=== PATIENT | male | born 1950 | race Caucasian/White ===

== ENCOUNTER 2017-07-25 07:48 | Emergency (ER) | payer MEDICARE, BC ==
[2017-07-25] MEDS ORDERED: Sodium Chloride 0.9% 10 ML Syringe FLUSH PRN (09:11)
[2017-07-25] MEDS ORDERED: Sodium Chloride 0.9% 1,000 ML IV ONE (09:16)
--- NOTE | 2017-07-25 10:52 | EDM.PDOC ---
ED HPI GENERAL MEDICAL PROBLEM - General Chief Complaint: Respiratory Problem Stated Complaint: SOB, DEHYDRATION Time Seen by Provider: 07/25/17 07:48 Source of Information: Reports: Patient History Limitations: Reports: No Limitations - History of Present Illness INITIAL COMMENTS - FREE TEXT/NARRATIVE: 67 y.o.w.m came to the ed because he could not pass stool for about 1 week. His last stool was soft, but had blood on top of it. Pt has a h/o hemorrhoids. No N /V, no trauma. Pt says he feels occ dizzy, had poor water intake in the past 1- 2 week. Pt denied other acute medical issues. BP 130/71 pulse 94 Temp 36.6 Pulse ox 100% Onset Date: 07/21/17 Onset Time: 07:00 Duration: Week(s):, Getting Worse Location: Reports: Abdomen Quality: Reports: Dull, Same as Previous Episode Severity: Mild Improves with: Reports: None Worsens with: Reports: None Context: Reports: Other (unable to pass stool for 1 week) Associated Symptoms: Reports: No Other Symptoms (abd. discomfort, minor) Rectal Pain Score (Numeric/FACES): 3 - Related Data Allergies Allergy/AdvReac Type Severity Reaction Status Date / Time No Known Allergies Allergy Verified 07/25/17 08:08 Home Meds: Home Meds Aspirin 325 mg PO DAILY 07/25/17 [History] Venlafaxine HCl [Venlafaxine HCl ER] 75 mg PO DAILY 07/25/17 [History] Past Medical History Cardiovascular History: Reports: Afib Gastrointestinal History: Reports: Diverticulosis Psychiatric History: Reports: Depression - Past Surgical History Cardiovascular Surgical History: Reports: Coronary Artery Bypass GI Surgical History: Reports: Other (See Below) Other GI Surgeries/Procedures: colon resection removing 19" Social & Family History - Family History Family Medical History: Noncontributory - Tobacco Use Smoking Status *Q: Never Smoker - Caffeine Use Caffeine Use: Reports: Coffee - Recreational Drug Use Recreational Drug Use: No ED ROS GENERAL - Review of Systems Review Of Systems: See Below Constitutional: Reports: No Symptoms HEENT: Reports: No Symptoms Respiratory: Reports: No Symptoms Cardiovascular: Reports: No Symptoms Endocrine: Reports: No Symptoms GI/Abdominal: Reports: Bloody Stool : Reports: No Symptoms Musculoskeletal: Reports: No Symptoms Skin: Reports: No Symptoms Neurological: Reports: No Symptoms Psychiatric: Reports: No Symptoms Hematologic/Lymphatic: Reports: No Symptoms Immunologic: Reports: No Symptoms ED EXAM, GENERAL - Physical Exam Exam: See Below Exam Limited By: No Limitations General Appearance: Alert, WD/WN, Mild Distress, Obese Eye Exam: Bilateral Eye: Normal Inspection Ears: Normal External Exam Ear Exam: Bilateral Ear: Auricle Normal Nose: Normal Inspection, Normal Mucosa Throat/Mouth: Normal Inspection, Normal Lips Head: Atraumatic, Normocephalic Neck: Normal Inspection, Supple, Non-Tender, Full Range of Motion Respiratory/Chest: No Respiratory Distress, Lungs Clear, Normal Breath Sounds Cardiovascular: Normal Peripheral Pulses, Regular Rate, Rhythm Peripheral Pulses: 2+: Brachial (L) GI/Abdominal: Normal Bowel Sounds, Soft, Tender (generalized) (Male) Exam: Deferred Rectal (Males) Exam: Deferred Back Exam: Normal Inspection, Full Range of Motion Extremities: Normal Inspection, Normal Range of Motion, Non-Tender, No Pedal Edema, Normal Capillary Refill Neurological: Alert, Oriented, CN II-XII Intact, Normal Cognition, Normal Gait, No Motor/Sensory Deficits Psychiatric: Normal Affect, Normal Mood Skin Exam: Warm, Dry, Intact, Normal Color, No Rash Lymphatic: No Adenopathy EKG INTERPRETATION EKG Date: 07/25/17 Time: 08:10 Rhythm: NSR Rate (Beats/Min): 82 [place]: Normal P-Wave: Present QRS: Normal ST-T: Normal QT: Normal Comparison: NA - No Prior EKG Course - Vital Signs Text/Narrative:: 67 y.o.w.m came to the ed because he could not pass stool for about 1 week. His last stool was soft, but had blood on top of it. Pt has a h/o hemorrhoids. No N /V, no trauma. Pt says he feels occ dizzy, had poor water intake in the past 1- 2 week. Pt denied other acute medical issues. BP 130/71 pulse 94 Temp 36.6 Pulse ox 100% PE: WNWD WN WM C/O abd. discomfort Labs: WBC NL BUN 25 Cr 1.3 GFR 55 UA nl Imaging: NSBGP, no obstruction NAY: NSR Impression: Dehydration Tx: NS Reexam: Improved, pt passed brown stool, soft, with minimal blood on top of it Plan: D/C with instructions Last Recorded V/S: Last Vital Signs Temp 36.3 C 07/25/17 11:15 Pulse 82 07/25/17 11:15 Resp 18 07/25/17 11:15 BP 125/72 07/25/17 11:15 Pulse Ox 96 07/25/17 11:15 - Orders/Labs/Meds Orders: Active Orders 24 hr Category Date Time Status Abdomen 2V AP Flat Upright [CR] Stat Exams 07/25/17 08:11 Taken Saline Lock Insert [OM.PC] Routine Oth 07/25/17 09:11 Ordered EKG 12 Lead [EK] Routine Ther 07/25/17 08:11 Ordered Labs: Laboratory Tests 07/25/17 07/25/17 07/25/17 Range/Units 08:18 08:18 08:34 WBC 8.2 (4.5-12.0) X10-3/uL RBC 4.89 (4.30-5.75) x10(6)uL Hgb 16.1 H (11.5-15.5) g/dL Hct 49.1 (30.0-51.3) % MCV 100.3 H (80-96) fL MCH 33.0 (27.7-33.6) pg MCHC 32.9 (32.2-35.4) g/dL RDW 12.0 (11.5-15.5) % Plt Count 167 (125-369) X10(3)uL Sodium 141 (135-145) mmol/L Potassium 4.7 (3.5-5.3) mmol/L Chloride 104 (100-110) mmol/L Carbon Dioxide 29 (21-32) mmol/L BUN 28 H (7-18) mg/dL Creatinine 1.3 (0.70-1.30) mg/dL Est Cr Clr Drug Dosing TNP Estimated GFR (MDRD) 55 L (>60) BUN/Creatinine Ratio 21.5 H (9-20) Glucose 112 (80-116) mg/dL Calcium 9.5 (8.6-10.2) mg/dL NT-Pro-B Natriuret Pep 198 H (<=125) pg/mL Urine Color (YELLOW) Urine Appearance (CLEAR) Urine pH (5.0-6.5) Ur Specific [place] (1.010-1.025) Urine Protein (NEGATIVE) mg/dL Urine Glucose (UA) (NEGATIVE) mg/dL Urine Ketones (NEGATIVE) mg/dL Urine Occult Blood (NEGATIVE) Urine Nitrite (NEGATIVE) Urine Bilirubin (NEGATIVE) Urine Urobilinogen (NEGATIVE) mg/dL Ur Leukocyte Esterase (NEGATIVE) Urine RBC (0) Urine WBC (0) Ur Squamous Epith Cells (NS,R,O) Urine Bacteria (NS) 07/25/17 Range/Units 09:18 WBC (4.5-12.0) X10-3/uL RBC (4.30-5.75) x10(6)uL Hgb (11.5-15.5) g/dL Hct (30.0-51.3) % MCV (80-96) fL MCH (27.7-33.6) pg MCHC (32.2-35.4) g/dL RDW (11.5-15.5) % Plt Count (125-369) X10(3)uL Sodium (135-145) mmol/L Potassium (3.5-5.3) mmol/L Chloride (100-110) mmol/L Carbon Dioxide (21-32) mmol/L BUN (7-18) mg/dL Creatinine (0.70-1.30) mg/dL Est Cr Clr Drug Dosing Estimated GFR (MDRD) (>60) BUN/Creatinine Ratio (9-20) Glucose (80-116) mg/dL Calcium (8.6-10.2) mg/dL NT-Pro-B Natriuret Pep (<=125) pg/mL Urine Color Yellow (YELLOW) Urine Appearance Clear (CLEAR) Urine pH 5.0 (5.0-6.5) Ur Specific [place] 1.020 (1.010-1.025) Urine Protein Negative (NEGATIVE) mg/dL Urine Glucose (UA) Normal (NEGATIVE) mg/dL Urine Ketones Negative (NEGATIVE) mg/dL Urine Occult Blood Negative (NEGATIVE) Urine Nitrite Negative (NEGATIVE) Urine Bilirubin Negative (NEGATIVE) Urine Urobilinogen Normal (NEGATIVE) mg/dL Ur Leukocyte Esterase Negative (NEGATIVE) Urine RBC 0-5 (0) Urine WBC Not seen (0) Ur Squamous Epith Cells Rare (NS,R,O) Urine Bacteria Few H (NS) Meds: Medications Discontinued Medications Generic Name Dose Route Start Last Admin Trade Name Freq PRN Reason Stop Dose Admin Sodium Chloride 1,000 mls @ 999 mls/hr 07/25/17 09:16 07/25/17 09:18 Normal Saline IV 07/25/17 10:16 999 mls/hr .BOLUS ONE Administration Sodium Chloride 10 ml 07/25/17 09:11 07/25/17 09:14 Saline Flush FLUSH 10 ml ASDIRECTED PRN Administration Keep Vein Open Departure - Departure Time of Disposition: 10:51 Disposition: Home, Self-Care 01 Condition: Good Clinical Impression: Dehydration - Discharge Information Instructions: Dehydration, Adult, [id number], Constipation, Adult Referrals: Farooq Clark MD [Primary Care Provider] - Forms: ED Department Discharge Additional Instructions: Please increae water intake, please f/u, come back to the ed if your symptoms get worse acutely - My Orders Last 24 Hours: My Active Orders 07/25/17 08:11 Abdomen 2V AP Flat Upright [CR] Stat EKG 12 Lead [EK] Routine 07/25/17 09:11 Saline Lock Insert [OM.PC] Routine - Assessment/Plan Last 24 Hours: My Active Orders 07/25/17 08:11 Abdomen 2V AP Flat Upright [CR] Stat EKG 12 Lead [EK] Routine 07/25/17 09:11 Saline Lock Insert [OM.PC] Routine
== END 2017-07-25 11:17 | disposition home or self-care (01) ==
LOC: FB.ED 07:48
DX: E86.0 Dehydration (principal); F32.9 Major depressive disorder, single episode, unspecified; Z79.82 Long term (current) use of aspirin; Z79.899 Other long term (current) drug therapy
CPT/HCPCS: 36415; 74019; 80048; 81001; 83880; 85027; 93005; 96360; 99283; 99284; J7040; J7050

== ENCOUNTER 2019-03-04 20:14 | Emergency (ER) | payer MEDICARE, BC ==
[2019-03-04] MEDS ORDERED: Acetaminophen 325 MG Tab PO ONE (22:54)
[2019-03-04] MEDS ORDERED: Acetaminophen 500 MG Tab ONE (23:00)
[2019-03-04] MEDS ORDERED: Acetaminophen 500 MG Tab PO ONE (23:00)
[2019-03-04] MEDS ORDERED: Sodium Phosphate,Monobasic/Sodium Phosphate,Dibasic Enema 133 ML Bottle RECTAL ONE (23:21)
--- NOTE | 2019-03-04 23:49 | EDM.PDOC ---
ED HPI GENERAL MEDICAL PROBLEM - General Stated Complaint: CONSTIPATED FOR 2DAYS Time Seen by Provider: 03/04/19 21:40 Source of Information: Reports: Patient History Limitations: Reports: No Limitations - History of Present Illness INITIAL COMMENTS - FREE TEXT/NARRATIVE: Patient is a pleasant 69-year-old male who presents tonight with concern for constipation for the past 2 days. He reports that he thinks it is related to his rib pain on the left side, secondary to a rib fracture of rib 6 which occurred 2 weeks ago. He has been taking only extra strength Tylenol for the pain. He states he took a dose of propylene glycol this morning, and also a dose of senna today. He has been trying orange juice, liquid soups and lots of water in order to get his bowels to move. No fiber source. He had a similar episode approximately a year ago and presented to the emergency room, isn't sure what happened. He reports mild nausea, but no vomiting and no significant abdominal pain, but feeling very bloated and stopped up. 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 He denies any fever, chills or sweats. He denies any pain anywhere else besides his left rib. No cough. No other symptoms or concerns - Related Data Allergies Allergy/AdvReac Type Severity Reaction Status Date / Time No Known Allergies Allergy Verified 03/05/19 08:24 Home Meds: Home Meds Aspirin 325 mg PO DAILY 07/25/17 [History] Venlafaxine HCl [Venlafaxine HCl ER] 75 mg PO DAILY 07/25/17 [History] Acetaminophen [Tylenol Extra Strength] 1,000 mg PO TID PRN 03/05/19 [History] Past Medical History Cardiovascular History: Reports: Afib Gastrointestinal History: Reports: Diverticulosis Psychiatric History: Reports: Depression - Past Surgical History Cardiovascular Surgical History: Reports: Coronary Artery Bypass GI Surgical History: Reports: Other (See Below) Other GI Surgeries/Procedures: colon resection removing 19" Social & Family History - Family History Family Medical History: Noncontributory - Tobacco Use Smoking Status *Q: Current Status Unknown - Caffeine Use Caffeine Use: Reports: Coffee - Recreational Drug Use Recreational Drug Use: No ED ROS GENERAL - Review of Systems Review Of Systems: ROS reveals no pertinent complaints other than HPI. ED EXAM, GENERAL - Physical Exam Exam: See Below Free Text/Narrative:: Gen.: Alert, no acute distress. Head is atraumatic, neck supple. Throat is without erythema, mucous members are moist. Lungs are clear throughout with reduced sounds in the bases and poor inspiratory effort. Heart is regular rate and rhythm. Abdominal exam shows a midline sternotomy scar, and a lower midline abdominal scar from his bowel resection. His bowel sounds are normal, and he is completely nontender with no rebound or guarding. His abdomen is nondistended. A diastases recti is present. Peripheral pulses +2 in the upper and lower extremities and there is no lower extremity edema. His strength is equal side to side and his gait is normal. Course - Vital Signs Text/Narrative:: Initial impression-- c/o constipation, very poor fiber intake the last 2 days but has taken medications today which should cause his bowels to move. No pain and no vomiting which makes unlikely any kind of bowel obstruction, although he does have a risk factor with history of colon resection. Will get abdominal labs and upright KUB Last Recorded V/S: Last Vital Signs Temp 36.7 C 03/04/19 20:30 Pulse 81 03/04/19 23:45 Resp 18 03/04/19 23:45 BP 152/90 H 03/04/19 23:45 Pulse Ox 100 03/04/19 23:45 - Orders/Labs/Meds Orders: Active Orders 24 hr Category Date Time Status KUB [Abdomen 1V Flat] [CR] Stat Exams 03/04/19 21:46 Taken Labs: Laboratory Tests 03/04/19 03/04/19 Range/Units 21:54 21:54 WBC 7.3 (4.5-12.0) X10-3/uL RBC 4.75 (4.30-5.75) x10(6)uL Hgb 16.5 (13.5-17.8) g/dL Hct 47.7 (30.0-51.3) % MCV 100.3 H (80-96) fL MCH 34.7 H (27.7-33.6) pg MCHC 34.6 (32.2-35.4) g/dL RDW 12.1 (11.5-15.5) % Plt Count 183 (125-369) X10(3)uL MPV 8.1 (7.4-10.4) fL Neut % (Auto) 58.7 (46-82) % Lymph % (Auto) 25.6 (13-37) % [place] % (Auto) 12.3 H (4-12) % Eos % (Auto) 3 (1.0-5.0) % Baso % (Auto) 1 (0-2) % Neut # (Auto) 4.2 (1.6-8.3) # Lymph # (Auto) 1.9 (0.6-5.0) # [place] # (Auto) 0.9 (0.0-1.3) # Eos # (Auto) 0.2 (0.0-0.8) # Baso # (Auto) 0.1 (0.0-0.2) # Sodium 140 (135-145) mmol/L Potassium 4.5 (3.5-5.3) mmol/L Chloride 103 (100-110) mmol/L Carbon Dioxide 31 (21-32) mmol/L BUN 18 D (7-18) mg/dL Creatinine 1.4 H (0.70-1.30) mg/dL Est Cr Clr Drug Dosing TNP Estimated GFR (MDRD) 50 L (>60) BUN/Creatinine Ratio 12.9 (9-20) Glucose 104 (80-116) mg/dL Calcium 9.3 (8.6-10.2) mg/dL Total Bilirubin 0.9 (0.1-1.3) mg/dL AST 30 H (5-25) IU/L ALT 39 H (12-36) U/L Alkaline Phosphatase 82 (56-112) IU/L Total Protein 7.9 (6.0-8.0) g/dL Albumin 4.0 (3.2-4.6) g/dL Globulin 3.9 g/dL Albumin/Globulin Ratio 1.0 Amylase 37 (25-115) U/L Meds: Medications Discontinued Medications Generic Name Dose Route Start Last Admin Trade Name Freq PRN Reason Stop Dose Admin Acetaminophen 650 mg 03/04/19 22:54 03/04/19 23:03 Tylenol PO 03/04/19 22:55 Not Given NOW ONE Acetaminophen Confirm 03/04/19 23:00 03/04/19 23:03 Tylenol Extra Strength Administered 03/04/19 23:01 Not Given Dose 1,000 mg .ROUTE .STK-MED ONE Acetaminophen 1,000 mg 03/04/19 23:00 03/04/19 23:00 Tylenol Extra Strength PO 03/04/19 23:01 1,000 mg ONETIME ONE Administration Sodium Biphosphate/Sodium Phosphate 133 ml 03/04/19 23:21 03/05/19 07:33 Fleet Enema RECTAL 03/04/19 23:22 Not Given ONETIME ONE - Re-Assessments/Exams Free Text/Narrative Re-Assessment/Exam: Labs reviewed, very minimal elevation in creatinine and LFTs. Abdominal exam remains benign. Upright KUB does not show any obstructive bowel gas pattern. Discussed the patient discharged home with recommendations for continuing home treatment, versus offered to do an enema here. He would like an enema as he is quite concerned about the amount of discomfort he is in. Free Text/Narrative Re-Assessment/Exam: Patient states he just had a very large bowel movement which was soft and not quite formed. No blood or black. He feels much better and does not think he needs an enema now. Will send a Fleet Enema with him as take home; see discharge instructions Departure - Departure Time of Disposition: 23:45 Disposition: Home, Self-Care 01 Condition: Good Clinical Impression: Constipation - Discharge Information *PRESCRIPTION DRUG MONITORING PROGRAM REVIEWED*: Not Applicable *COPY OF PRESCRIPTION DRUG MONITORING REPORT IN PATIENT RIVERA: Not Applicable Instructions: Constipation, Adult Referrals: Farooq Clark MD [Primary Care Provider] - Forms: ED Department Discharge Additional Instructions: for chronic constipation OK to take multiple doses of miralax in a day (up to 4) if needed as long as no vomiting or severe abdominal pain that makes you want to bend over this medication is very safe should not use if severe rectal pain or really hard stools that are stuck and you are unable to pass drink LOTS and LOTS of water to replace what you are losing through GI tract senna is ok for occasional constipation but should not be taken daily on a regular basis increasing fiber intake is helpful walking is often also helpful or some kind of daily movement to stimulate bowels fleet enema given as take-home, but would try the above first - My Orders Last 24 Hours: My Active Orders 03/04/19 21:46 KUB [Abdomen 1V Flat] [CR] Stat - Assessment/Plan Last 24 Hours: My Active Orders 03/04/19 21:46 KUB [Abdomen 1V Flat] [CR] Stat
--- NOTE | 2019-03-07 11:05 | CR ---
INDICATION: Constipation. ABDOMEN: Three images of the abdomen were obtained in upright projection and revealed a fairly nonspecific pattern of gas and feces with some very minimal air fluid levels in the colon. These could be on the basis of minimal paralytic ileus or possibly fluid intake or gastroenteritis. Findings should be correlated clinically in that regard. No finding to strongly suggest mechanically obstructive process was identified. Small to moderate amounts of stool are noted in the colon, including the area of the rectosigmoid and rectum. A mild dextroconvex scoliosis is noted at the lumbar spine with moderate hypertrophic degenerative changes in the mid to upper lumbar spine and lower thoracic area. No organomegaly, mass lesions, or nonvascular pathologic calcifications were noted. There are some calcifications noted in the abdominal aorta. A phlebolith is also noted in the left pelvis. Findings were compared with 07/25/17 abdomen x-ray and showed little interval change, except for the minimal air fluid levels in the transverse colon with a few in the small bowel and no distention. IMPRESSION: Minimal air fluid levels are noted in the colon and mid to distal small bowel. No distention of bowel was seen. Stool appeared normal in the rectum and rectosigmoid area. No finding to strongly suggest a mechanically obstructive process was seen. Followup x-rays may be helpful if symptoms persist. MTDD
== END 2019-03-04 23:50 | disposition home or self-care (01) ==
LOC: FB.ED 20:14
DX: K59.00 Constipation, unspecified (principal); F32.9 Major depressive disorder, single episode, unspecified; Z79.82 Long term (current) use of aspirin; Z79.899 Other long term (current) drug therapy
CPT/HCPCS: 36415; 74018; 80053; 82150; 85025; 99283; A9270

== ENCOUNTER 2020-08-29 02:08 | Emergency (ER) | payer MEDICARE, BC ==
[2020-08-29] MEDS ORDERED: Acetaminophen/HYDROcodone 325-5 MG Tab PO ONE (02:09)
[2020-08-29] MEDS ORDERED: Ketorolac 60 MG/2 ML SDV IM ONE (02:16)
[2020-08-29] MEDS ORDERED: Acetaminophen 500 MG Tab PO STA (02:18)
--- NOTE | 2020-08-29 03:16 | EDM.PDOC ---
ED HPI GENERAL MEDICAL PROBLEM - General Chief Complaint: Upper Extremity Injury/Pain Stated Complaint: FALL-SHOULDER INJURY Time Seen by Provider: 08/29/20 02:15 Source of Information: Reports: Patient History Limitations: Reports: No Limitations - History of Present Illness INITIAL COMMENTS - FREE TEXT/NARRATIVE: Patient presented to the ED because of left shoulder injury. He apparently tripped and fell on his way to the bathroom. He land ed on his left shoulder and c/o pain with movement. L shoulder Pain Score (Numeric/FACES): 7 - Related Data Allergies Allergy/AdvReac Type Severity Reaction Status Date / Time No Known Allergies Allergy Verified 08/29/20 02:21 Home Meds: Home Meds Aspirin 325 mg PO DAILY 07/25/17 [History] Venlafaxine HCl [Venlafaxine HCl ER] 75 mg PO DAILY 07/25/17 [History] Acetaminophen [Tylenol Extra Strength] 1,000 mg PO TID PRN 03/05/19 [History] Acetaminophen/HYDROcodone [[place] 325-5 MG] 1 tab PO Q4H PRN #10 tablet 08/29/20 [Rx] Cyclobenzaprine [Flexeril] 10 mg PO TID PRN #15 tab 08/29/20 [Rx] Past Medical History Cardiovascular History: Reports: Afib, Heart Murmur, Heart Valve Replacement, Other (See Below) Respiratory History: Reports: Sleep Apnea Other Respiratory History: uses CPAP Gastrointestinal History: Reports: Diverticulosis Genitourinary History: Reports: Renal Calculus Musculoskeletal History: Reports: Arthritis, Fracture, Other (See Below) Other Musculoskeletal History: Fingertip amputation, right hand, digit 3, R an kle fx, L hip fx Psychiatric History: Reports: Anxiety, Depression Endocrine/Metabolic History: Reports: Obesity/BMI 30+ - Infectious Disease History Infectious Disease History: Reports: Chicken Pox, Measles - Past Surgical History HEENT Surgical History: Reports: Adenoidectomy, Cataract Surgery, Tonsillectomy Other HEENT Surgeries/Procedures: bilat cataract Cardiovascular Surgical History: Reports: Coronary Artery Bypass, Other (See Below) Other Cardiovascular Surgeries/Procedures: has had L ventricle repaired GI Surgical History: Reports: Colon, Colonoscopy, Other (See Below) Other GI Surgeries/Procedures: colon resection removing 18" Male Surgical History: Reports: Kidney Stone Extraction, Renal Calculus, U reteral Stent Musculoskeletal Surgical History: Reports: Amputation Other Musculoskeletal Surgeries/Procedures:: R 3rd digit partially amputated Social & Family History - Family History Family Medical History: No Pertinent Family History - Tobacco Use Tobacco Use Status *Q: Former Tobacco User Used Tobacco, but Quit: Yes Month/Year Tobacco Last Used: 2009 - Caffeine Use Caffeine Use: Reports: Coffee - Alcohol Use Days Per Week of Alcohol Use: 5 Number of Drinks Per Day: 3 Total Drinks Per Week: 15 - Recreational Drug Use Recreational Drug Use: No Review of Systems - Review of Systems Review Of Systems: See Below Constitutional: Reports: No Symptoms Eyes: Reports: No Symptoms Ears: Reports: No Symptoms Nose: Reports: No Symptoms Mouth/Throat: Reports: No Symptoms Respiratory: Reports: No Symptoms Cardiovascular: Reports: No Symptoms GI/Abdominal: Reports: No Symptoms Genitourinary: Reports: No Symptoms Musculoskeletal: Reports: Joint Pain Skin: Reports: No Symptoms ED EXAM, GENERAL - Physical Exam Exam: See Below Exam Limited By: No Limitations General Appearance: Alert, No Apparent Distress Eye Exam: Bilateral Eye: PERRL Ears: Normal External Exam, Normal Canal Nose: Normal Inspection, Normal Mucosa, No Blood Throat/Mouth: Normal Inspection, Normal Lips Head: Atraumatic, Normocephalic Neck: Normal Inspection, Supple, Non-Tender, Full Range of Motion Respiratory/Chest: No Respiratory Distress, Lungs Clear, Normal Breath Sounds, No Accessory Muscle Use, Chest Non-Tender Cardiovascular: Normal Peripheral Pulses, Regular Rate, Rhythm, No Edema, No G allop, No JVD, No Murmur, No Rub GI/Abdominal: Normal Bowel Sounds, Soft, Non-Tender, No Organomegaly Back Exam: Normal Inspection, Full Range of Motion Extremities: Limited Range of Motion, Other (tenderness left humeral neck area) Course - Vital Signs Text/Narrative:: see xray result Toradol 60 mg IM Tylenol 1000 mg po x1 Last Recorded V/S: Last Vital Signs Temp 36.3 C 08/29/20 02:08 Pulse 75 08/29/20 02:08 Resp 20 08/29/20 02:08 BP 158/85 H 08/29/20 02:08 Pulse Ox 98 08/29/20 02:08 - Orders/Labs/Meds Orders: Active Orders 24 hr Category Date Time Status Shoulder Comp Lt [CR] Stat Exams 08/29/20 02:16 Taken Meds: Medications Discontinued Medications Generic Name Dose Route Start Last Admin Trade Name Freq PRN Reason Stop Dose Admin Acetaminophen 1,000 mg 08/29/20 02:18 08/29/20 02:44 Acetaminophen 500 Mg Tab PO 08/29/20 02:19 1,000 mg NOW STA Administration Ketorolac Tromethamine 60 mg 08/29/20 02:16 08/29/20 02:44 Ketorolac 60 Mg/2 Ml Sdv IM 08/29/20 02:17 60 mg ONETIME ONE Administration Departure - Departure Time of Disposition: 03:15 Disposition: Home, Self-Care 01 Condition: Good Clinical Impression: Fx humeral neck - Discharge Information Prescriptions: Cyclobenzaprine [Flexeril] 10 mg PO TID PRN #15 tab PRN Reason: Spasms Acetaminophen/HYDROcodone [[place] 325-5 MG] 1 tab PO Q4H PRN #10 tablet PRN Reason: Pain Referrals: Farooq Clark MD [Primary Care Provider] - Additional Instructions: Please read discharge instructions on humeral neck fracture Take norco 5 mg, 1-2 tablets every 4-6 hours as needed for pain Call [facility] @ [phone] c/o Dr Galvan for an appointment. Tell the heat treat furnace operator that you have a fractured humerus and that you were seen in the ED this morning Sepsis Event Note (ED) - Evaluation Sepsis Screening Result: No Definite Risk - Focused Exam Vital Signs: Vital Signs Temp Pulse Resp BP Pulse Ox 08/29/20 02:08 36.3 C 75 20 158/85 H 98 - My Orders Last 24 Hours: My Active Orders 08/29/20 02:16 Shoulder Comp Lt [CR] Stat - Assessment/Plan Last 24 Hours: My Active Orders 08/29/20 02:16 Shoulder Comp Lt [CR] Stat
== END 2020-08-29 03:40 | disposition home or self-care (01) ==
LOC: FB.ED 02:08
DX: S42.212A Unspecified displaced fracture of surgical neck of left humerus, initial encounter for closed fracture (principal); I48.91 Unspecified atrial fibrillation; M19.90 Unspecified osteoarthritis, unspecified site; E66.9 Obesity, unspecified; Z68.36 Body mass index [BMI] 36.0-36.9, adult; Z87.891 Personal history of nicotine dependence; Z79.82 Long term (current) use of aspirin; Z79.899 Other long term (current) drug therapy; W01.0XXA Fall on same level from slipping, tripping and stumbling without subsequent striking against object, initial encounter
CPT/HCPCS: 73030-LT; 96372; 99283-25; A9270-GY; J1885